=== PATIENT | female | born 2000 | race Caucasian/White ===

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

== ENCOUNTER 2025-05-06 17:46 | Emergency (ER) | payer BC ==
[2025-05-06 18:24] VITALS: TEMP 98.4
--- NOTE | 2025-05-06 18:34 | ED ---
General Adult HPI - General Chief complaint: Recheck/Abnormal Lab/Rx Stated complaint: R sided body numbness Time Seen by Provider: 05/06/25 18:26 Source: patient, RN notes reviewed Mode of arrival: ambulatory Limitations: no limitations - History of Present Illness Initial comments: Patient is a 24-year-old female present to the emergency department with concerns with right-sided paresthesias. Symptoms have been intermittent over the past week. Symptoms involve mostly the upper right lateral face however also somewhat the arm and leg. Patient has history of anxiety and questions if this could be related. Patient also has been having some headaches over the past week, none at this time. Patient does have history of some headaches and may have seen a doctor a couple of years ago. Patient does not believe she has had previous imaging. - Related Data Previous Rx's Medication Instructions Recorded Amoxic-Pot Clav 875-125Mg 1 tab PO Q12HR #20 tablet 12/01/19 [Augmentin 875-125] Allergies Allergy/AdvReac Type Severity Reaction Status Date / Time No Known Allergies Allergy Verified 12/01/19 12:54 Review of Systems ROS Statement: Those systems with pertinent positive or pertinent negative responses have been documented in the HPI. ROS Other: All systems not noted in ROS Statement are negative. Constitutional: Denies: fever Eyes: Denies: eye pain ENT: Denies: ear pain Respiratory: Denies: cough Cardiovascular: Denies: chest pain Gastrointestinal: Denies: abdominal pain Neurological: Reports: headache, paresthesias. Denies: weakness, confusion Psychiatric: Reports: anxiety Past Medical History Past Medical History: No Reported History History of Any Multi-Drug Resistant Organisms: None Reported Past Surgical History: Ear Surgery Past Psychological History: Anxiety Smoking Status: Never smoker Past Alcohol Use History: Occasional Past Drug Use History: None Reported General Exam Limitations: no limitations General appearance: alert, in no apparent distress Head exam: Present: normocephalic Eye exam: Present: normal appearance, PERRL, EOMI ENT exam: Present: normal oropharynx Neck exam: Present: normal inspection. Absent: tenderness Respiratory exam: Present: normal lung sounds bilaterally Cardiovascular Exam: Present: regular rate, normal rhythm GI/Abdominal exam: Present: soft. Absent: tenderness Extremities exam: Present: normal inspection, full ROM. Absent: tenderness Neurological exam: Present: alert, oriented X3, CN II-XII intact. Absent: motor sensory deficit Expanded Neurological exam: Present: protecting the airway Speech: Present: fluid speech Cranial nerves: EOM's Intact: Normal, Facial Sensation: Normal Sensory exam: Upper Extremity Light Touch: Normal, Lower Extremity Light Touch: Normal Motor strength exam: RUE: 5, LUE: 5, RLE: 5, LLE: 5 Eye Response: (4) open spontaneously Motor Response: (6) obeys commands Verbal Response: (5) oriented Psychiatric exam: Present: normal affect, normal mood Skin exam: Present: normal color Course Vital Signs 05/06/25 05/06/25 18:19 18:53 Temperature 98.4 F Pulse Rate 90 90 Respiratory 16 18 Rate Blood Pressure 151/103 133/96 O2 Sat by Pulse 98 98 Oximetry Medical Decision Making - Medical Decision Making Was pt. sent in by a medical professional or institution (, PA, OPHTHALMIC TECHNOLOGIST, urgent care, hospital, or prison...) When possible be specific @ -No Did you speak to anyone other than the patient for history (EMS, parent, family, police, friend...)? What history was obtained from this source @ -No Did you review nursing and triage notes (agree or disagree)? Why? @ -I reviewed and agree with nursing and triage notes Were old charts reviewed (outside hosp., previous admission, EMS record, old EKG, old radiological studies, urgent care reports/EKG's, prison records)? Report findings @ -No old charts were reviewed Differential Diagnosis (chest pain, altered mental status, abdominal pain women, abdominal pain men, vaginal bleeding, weakness, fever, dyspnea, syncope, headache, dizziness, GI bleed, back pain, seizure, CVA, palpatations, mental health, musculoskeletal)? @ -Differential Headache: Migraine, tension, cluster, carbon monoxide, central venous thrombosis, pension karma temporal arteritis, acute closure glaucoma, intercranial hemorrhage, mastoiditis, sinusitis, head injury, this is not meant to be an all-inclusive list. EKG interpreted by me (3pts min.). @ -As above X-rays interpreted by me (1pt min.). @ -None done CT interpreted by me (1pt min.). @ -CT scan of the brain without acute abnormality U/S interpreted by me (1pt. min.). @ -None done What testing was considered but not performed or refused? (CT, X-rays, U/S, labs)? Why? @ -None What meds were considered but not given or refused? Why? @ -None Did you discuss the management of the patient with other professionals (professionals i.e. , PA, OPHTHALMIC TECHNOLOGIST, lab, RT, psych nurse, social psychologist, entertainment lawyer, teacher, health officer, home health care case manager)? Give summary @ -No Was smoking cessation discussed for >3mins.? @ -No Was critical care preformed (if so, how long)? @ -No Were there social determinants of health that impacted care today? How? (Homelessness, low income, unemployed, alcoholism, drug addiction, transportation, low edu. Level, literacy, decrease access to med. care, assisted, rehab)? @ -No Was there de-escalation of care discussed even if they declined (Discuss DNR or withdrawal of care, Hospice)? DNR status @ -No What co-morbidities impacted this encounter? (DM, HTN, Smoking, COPD, CAD, Cancer, CVA, ARF, Chemo, Hep., AIDS, mental health diagnosis, sleep apnea, morbid obesity)? @ -None Was patient admitted / discharged? Hospital course, mention meds given and route, prescriptions, significant lab abnormalities, going to OR and other pertinent info. @ -Patient presents with headache, anxiety and right-sided paresthesia. Evaluation unremarkable. Patient reevaluated and feeling much better. Patient updated on results and need for follow-up. Undiagnosed new problem with uncertain prognosis? @ -No Drug Therapy requiring intensive monitoring for toxicity (Heparin, Nitro, Insulin, Cardizem)? @ -No Were any procedures done? @ -No Diagnosis/symptom? @ -Paresthesia, headache Acute, or Chronic, or Acute on Chronic? @ -Acute, acute Uncomplicated (without systemic symptoms) or Complicated (systemic symptoms)? @ -Default Side effects of treatment? @ -No Exacerbation, Progression, or Severe Exacerbation? @ -No Poses a threat to life or bodily function? How? (Chest pain, [place], [place], pneumonia, PE, COPD, DKA, ARF, appy, cholecystitis, CVA, Diverticulitis, Homicidal, Suicidal, threat to staff... and all critical care pts) @ -No - Lab Data Result diagrams: 05/06/25 18:36 05/06/25 18:36 Lab Results 05/06/25 05/06/25 Range/Units 18:36 18:36 WBC 6.86 (4.50-10.00) 10*3/uL RBC 4.88 (4.10-5.20) 10*6/uL Hgb 15.1 H (12.0-15.0) g/dL Hct 41.4 (37.2-46.3) % MCV 84.8 (80.0-97.0) fL MCH 30.9 (27.0-32.0) pg MCHC 36.5 (32.0-37.0) g/dL Plt Count 352 (140-440) 10*3/uL MPV 9.7 (9.5-12.2) fL Immature Gran % (Auto) 0.1 % Neutrophils % 51.0 % Lymphocytes % 39.4 % Monocytes % 8.2 % Eosinophils % 0.7 % Basophils % 0.6 % Immature Gran # 0.01 (0.00-0.04) 10*3/uL Neutrophils # 3.50 (1.80-7.70) 10*3/uL Lymphocytes # 2.70 (0.90-5.00) 10*3/uL Monocytes # 0.56 (0.20-1.00) 10*3/uL Eosinophils # 0.05 (0.04-0.35) 10*3/uL Basophils # 0.04 (0.00-0.10) 10*3/uL Sodium 140 (137-145) mmol/L Potassium 4.2 (3.5-5.1) mmol/L Chloride 103 (98-107) mmol/L Carbon Dioxide 24 (22-30) mmol/L Anion Gap 13 mmol/L BUN 10 (7-17) mg/dL Creatinine 0.57 (0.52-1.04) mg/dL Est GFR (CKD-EPI)AfAm >90 (>60 ml/min/1.73 sqM) Est GFR (CKD-EPI)NonAf >90 (>60 ml/min/1.73 sqM) Glucose 94 (74-99) mg/dL Calcium 9.9 (8.4-10.2) mg/dL Magnesium 1.8 (1.6-2.3) mg/dL Disposition Clinical Impression: Paresthesia, Headache Disposition: HOME SELF-CARE Condition: Stable Instructions (If sedation given, give patient instructions): Paresthesia (ED), Acute Headache (ED) Additional Instructions: Please do follow-up with your primary care physician in the next couple of days for recheck. Return for increased pain, confusion, loss of sensation, weakness, worsening or change in symptoms or any other concerns. Is patient prescribed a controlled substance at d/c from ED?: No Referrals: Nonstaff,Physician [Primary Care Provider] - 1-2 days Forms: Area PCPs Time of Disposition: 20:39
[2025-05-06 18:44] LABS: Basophils # (A) 0.04 10*3/uL (0.00-0.10); Basophils % (A) 0.6 %; Eosinophils # (A) 0.05 10*3/uL (0.04-0.35); Eosinophils % (A) 0.7 %; HCT 41.4 % (37.2-46.3); HGB 15.1 g/dL (12.0-15.0); Lymphocytes % (A) 39.4 %; MCH 30.9 pg (27.0-32.0); MCHC 36.5 g/dL (32.0-37.0); MCV 84.8 fL (80.0-97.0); Mean Platelet Volume 9.7 fL (9.5-12.2); Monocytes # (A) 0.56 10*3/uL (0.20-1.00); Monocytes % (A) 8.2 %; Platelet Count 352 10*3/uL (140-440); RBC 4.88 10*6/uL (4.10-5.20); WBC 6.86 10*3/uL (4.50-10.00)
[2025-05-06] MEDS: LORazepam 1 MG/0.5 ML VIAL IV STA (18:49)
[2025-05-06] MEDS: SODIUM CHLORIDE 0.9% 1,000 ML IV STA (18:51)
[2025-05-06 18:54] LABS: African American GFR (CKD) >90 (>60 ml/min/1.73 sqM); Anion Gap 13 mmol/L; Blood Urea Nitrogen 10 mg/dL (7-17); Calcium 9.9 mg/dL (8.4-10.2); Carbon Dioxide 24 mmol/L (22-30); Chloride 103 mmol/L (98-107); Glucose 94 mg/dL (74-99); Magnesium 1.8 mg/dL (1.6-2.3); Non-African American GFR(CKD) >90 (>60 ml/min/1.73 sqM); Potassium 4.2 mmol/L (3.5-5.1); Sodium 140 mmol/L (137-145)
[2025-05-06 19:02] VITALS: RESP 18
--- NOTE | 2025-05-06 19:59 | CT ---
EXAMINATION TYPE: CT brain wo con DATE OF EXAM: 05/06/2025 7:25 PM COMPARISON: None. CLINICAL INDICATION: Female, 24 years old with history of Headache, migraine/rt side numbness TECHNIQUE: CT of the brain is performed utilizing 3 mm thick sections through the posterior fossa and 3 mm thick sections through the remaining calvarium. Study is performed within 24 hours of arrival to the hospital. Contrast used: mL of , (none if empty) CT DLP: 1097.4 mGycm, Automated exposure control for dose reduction was used. FINDINGS: No abnormal hyperdensity is present to suggest an acute intracranial hemorrhage. No mass lesion is evident. No acute infarcts are evident. Ventricles and sulci are appropriate for the patient age. Paranasal sinuses and mastoid air cells within the [id number] are clear. IMPRESSION: 1. No acute intracranial process. Follow up MRI can be performed as clinically indicated. [facility], , 05/06/2025 7:57 PM
[2025-05-06 20:56] VITALS: BP 116/79; PULSE 92
== END 2025-05-06 20:59 | disposition home or self-care (01) ==
LOC: EC 17:46
DX: R20.2 Paresthesia of skin (principal); R51.9 Headache, unspecified
CPT/HCPCS: 36415; 80048; 83735; 85025; 70450; 99284; 96374; 96361 ×2; J2060